=== PATIENT | male | born 1990 | race Caucasian/White ===

== ENCOUNTER 2016-06-08 16:26 | Emergency (ER) | payer OTHER ==
[~2016-06-08] VITALS: Ht 167.6 cm; Wt 104.5 kg
[2016-06-08] MEDS ORDERED: TYLENOL WITH C1 EACH PO (18:05)
[2016-06-08] MEDS ORDERED: AMOXICILLIN500 M3 PO (18:05)
--- NOTE | 2016-06-08 18:07 | ED THROAT/DENTAL COMPLAINT ---
History of Present Illness General Chief Complaint: Sore Throat, Dental Pain Stated Complaint: TOOTH PAIN Source: patient Exam Limitations: no limitations Vital Signs & Intake/Output Vital Signs & Intake/Output Vital Signs Date Time Temp Pulse Resp B/P Pulse O2 O2 Flow FiO2 Ox Delivery Rate 06/08 1815 98.6 85 18 138/84 98 06/08 1632 98.9 90 16 145/81 99 Room Air Allergies Coded Allergies: No Known Allergies (06/08/16) Reconcile Medications Amoxicillin 500 MG TABLET 1 TAB PO BID dental infection Tylenol With Codeine (Tylenol With Codeine #3 Tablet) 300 MG-30 MG TABLET 1 TAB PO BIDP PRN pain Triage Note: COMPKLAINS OF L LOWER DENTAL PAIN FOR THE PAST WEEK, PAIN IS INCREASING Triage Nurses Notes Reviewed? yes Onset: Gradual Duration: week(s): (1) Timing: recent history Injury Environment: home Severity: moderate Severity Numbers: 7 Modifying Factors: Worsens With: other (eating). HPI: Patient is a 26-year-old male presenting to the emergency Department chief complaint of left lower dental pain that's been going on for the past week. Denies any injury. He reports that his tooth has been bothering him for a while. Denies any nausea vomiting fevers or chills chest pain or shortness of breath. He reports that he has not seen a dentist in over a year. Has been taking Tylenol without relief. Denies any other injury. Cold food makes it worse. (JIM REINOSO) Past History Travel History Traveled to [place] past 21 day No Medical History Any Pertinent Medical History? see below for history Neurological: NONE EENT: NONE Cardiovascular: NONE Respiratory: NONE Gastrointestinal: NONE Hepatic: NONE Renal: NONE Musculoskeletal: NONE Psychiatric: NONE Endocrine: NONE Blood Disorders: NONE Cancer(s): NONE FLOORING INSTALLER/Reproductive: NONE Surgical History Surgical History: non-contributory Psychosocial History What is your primary language French Tobacco Use: Current Daily Use Daily Tobacco Use Amount/Type: =< 4 Cigarettes daily ETOH Use: denies use Illicit Drug Use: denies illicit drug use Family History Hx Contributory? No (JIM REINOSO) Review of Systems Review of Systems Constitutional: Reports: no symptoms. Comments Review of systems: See HPI, All other systems negative. Constitutional, no chills fever or weight loss HEENT: No visual changes no sore throat no congestion Cardiovascular: No chest pain ,palpitation Skin, no jaundice no rashes Respiratory: No dyspnea cough sputum or hemoptysis GI: No nausea no vomiting Muscle skeletal: no back pain, no neck pain, Neurologic: No numbness no confusion Psych: No stress anxiety Immunology: No splenectomy or history of AIDS (JIM REINOSO) Physical Exam Physical Exam General Appearance: well developed/nourished, no apparent distress, alert, awake , comfortable Mouth/Throat: moderate erythema surrounding the left lower gumline, no dental abscess appreciated. Comments: Well-developed well-nourished person in no acute distress HEENT: Pupils equally round and reactive to light and accommodation. Nose is atraumatic. Pharynx is normal, no erythema, uvula midline. Thank secretions without difficulty. Mild erythema noted on the left lower gumline. No dental abscess appreciated. Neck: Normal inspection Cardiovascular: Regular rate and rhythms no murmurs rubs or gallops, normal JVP Respiratory: No respiratory distress. Extremity: No edema Neuro: Alert oriented x3 Skin: No appreciable rash on exposed skin, skin is warm and dry. Psych: Mood and affect is normal, memory and judgment is normal. Core Measures ACS in differential dx? No Severe Sepsis Present: No Septic Shock Present: No (JIM REINOSO) Progress Differential Diagnosis: tooth fracture, gingivitis, dental caries, dental infection, dental abscess Plan of Care: he will be treated with antibiotics and pain medication. Educated on following up with dentist. (JIM REINOSO) Departure Departure Time of Disposition: 1803 Disposition: HOME OR SELF CARE Condition: Stable Clinical Impression Primary Impression: Dental infection Referrals: [facility] PATIENT HAS NO PRIMARY CARE DR (PCP/Family) Additional Instructions: Follow-up with a dentist call to make an appointment. Take amoxicillin as prescribed. For severe pain use Tylenol for codeine. Return for worsening symptoms or concerns. Departure Forms: Customer Survey General Discharge Information Prescriptions: Current Visit Scripts Tylenol With Codeine (Tylenol With Codeine #3 Tablet) 1 TAB PO BIDP PRN pain #10 TAB Amoxicillin 1 TAB PO BID #20 TAB (JIM REINOSO) PA/MOVEMENT THERAPIST Co-Sign Statement Statement: ED Attending supervision documentation- [] I saw and evaluated the patient. I have also reviewed all the pertinent lab results and diagnostic results. I agree with the findings and the plan of care as documented in the PA's/MOVEMENT THERAPIST's documentation. x I have reviewed the ED Record and agree with the PA's/MOVEMENT THERAPIST's documentation. [] Additions or exceptions (if any) to the PAs/MOVEMENT THERAPIST's note and plan are summarized below: [] (GAURAV GRUBBS,NOHELIA)
[2016-06-08 18:15] VITALS: BP 138/84
== END 2016-06-08 18:16 ==
LOC: ERH 16:26
DX: K04.7 Periapical abscess without sinus (principal)